=== PATIENT | male | born 1985 | race Two or more races ===

== ENCOUNTER 2019-10-19 09:41 | Outpatient (CLI) | payer OTHER ==
--- NOTE | 2019-10-19 12:09 | Diagnostic Imaging Report ---
Indications: Intermittent scrotal pain Technique: Grayscale and duplex images of the scrotum Comparison: none Findings:The right testicle measures for 0.5cm in length. It demonstrates normal echogenicity. Normal Doppler flow. 4 mm cyst seen in the right epididymal head. There is a trace hydrocele. The left testicle measures 4. cm in length. It demonstrates normal echogenicity and normal Doppler flow. 1.5 cm cyst is seen within the epididymal head. There is a trace hydrocele There is questionable evidence of a small fat-containing right inguinal hernia Impression: No acute abnormality. Negative for evidence of testicular torsion or epididymitis orchitis Trace bilateral hydroceles Incidental finding of cyst within the epididymal heads bilaterally, may reflect spermatoceles versus epididymal cyst Questionable small right inguinal hernia. Correlate with clinical findings, consider CT for further evaluation if considered clinically relevant
--- NOTE | 2019-10-19 12:16 | Diagnostic Imaging Report ---
Indication: Flank pain and microhematuria Technique: Grayscale and duplex images of the kidneys, retroperitoneum, and bladder were obtained. Comparison: none Findings: Right kidney measures 10.2 cm in length. Left kidney measures 10.2 cm in length. Both kidneys demonstrate normal echogenicity. No hydronephrosis. There is incidental finding of a left lower pole renal cyst. Normal inferior vena cava. Bladder is normal. Calculated prostate volume is 16 mL Impression: Essentially unremarkable exam. Negative for hydronephrosis Incidental finding left lower pole renal cyst.
== END 2019-10-19 11:41 | disposition home or self-care (01) ==
LOC: ULS 09:41
DX: R10.9 Unspecified abdominal pain (principal); R31.9 Hematuria, unspecified; N28.1 Cyst of kidney, acquired
CPT/HCPCS: 76770; 76870